=== PATIENT | male | born 1980 | race Caucasian/White ===

== ENCOUNTER 2022-05-29 00:10 | Emergency (ER) | payer BC ==
[~2022-05-29] VITALS: Ht 200.7 cm; Wt 81.0 kg
[2022-05-29 00:32] LABS: BASO% 0.9 % (0-3); EOS% 2.7 % (0-8); HEMATOCRIT 46.3 % (39.0-50.0); IMMATURE GRANULOCYTES 1.7 % (0.0-5.0); LYMPH% 49.4 % (15-41); MEAN CELL VOLUME 102.7 fL CALC (80.0-100.0); MEAN CORPUSCULAR HGB 35.5 pG CALC (26.0-32.0); MEAN CORPUSCULAR HGB CONC 34.6 g/dL CAL (32.0-36.0); MONO% 6.4 % (2-13); NEUT# 3.15 thou/uL (1.82-7.42); NEUT% 38.9 % (42-76); RED BLOOD COUNT 4.51 mill/uL (4.70-6.10); RED CELL DISTRI WIDTH 14.5 % (11.5-15.5)
[2022-05-29 00:49] LABS: ETHYL ALCOHOL 195 mg/dl (0-30)
[2022-05-29 00:50] LABS: ALBUMIN 4.6 g/dL (3.2-5.0); ALKALINE PHOSPHATASE 147 u/l (38-126); ANION GAP 21 (6-22 (CALC)); BILIRUBIN, TOTAL 0.4 mg/dL (0.0-1.4); BUN 7 mg/dL (9-20); BUN/CREATININE RATIO 8 (12-20 (CALC)); CARBON DIOXIDE 22 mmol/l (22-30); CHLORIDE 103 mmol/l (95-108); CREATININE 0.9 mg/dL (0.7-1.3); GFR FOR AFR.AMER. > 60 ML/MIN (>=60 (CALC)); GFR OTHER RACES > 60 ML/MIN (>=60 (CALC)); POTASSIUM 3.7 mmol/l (3.5-5.1); SGOT/AST 180 u/l (17-59); SODIUM 143 mmol/l (137-146); TOTAL PROTEIN 7.3 g/dL (6.3-8.2)
[2022-05-29 02:52] LABS: URINE BILIRUBIN - DIPSTICK NEGATIVE (NEGATIVE); URINE BLOOD DIPSTICK TRACE-INTACT (NEGATIVE); URINE COLOR YELLOW; URINE GLUCOSE - DIPSTICK >=1000 mg/dL (NEGATIVE); URINE KETONE NEGATIVE (NEGATIVE); URINE LEUK ESTERASE NEGATIVE (NEGATIVE); URINE PROTEIN - DIPSTICK 30 mg/dL (NEG-TRACE); URINE UROBILINOGEN - DIPSTICK 0.2 E.U./dL (0.2)
[2022-05-29 02:58] LABS: URINE NITRITE - DIPSTICK NEGATIVE (Negative)
[2022-05-29 03:02] LABS: URINE BACTERIA FEW hpf; URINE EPITHELIAL CELLS FEW EPI/hpf (0-FEW); URINE WBC 0-2 WBC/hpf (0-5)
[2022-05-29 08:00] VITALS: BP 152/107
--- NOTE | 2022-05-30 08:31 | NUR ---
PRELIMINARY BLOOD CULTURE SHOWS GRAM (+) COCCI IN [address] RESULTS RE[address] ATKINSON. NO NEW ORDERS. POSSIBLE CONTAMINATION. WILL FOLLOW UP WHEN FINAL RESULTS AVAILABLE.
== END 2022-05-29 08:00 | disposition home or self-care (01) | DRG 208 ==
LOC: ED 00:10
PROVIDERS: Emergency Medicine
PROC: 5A1935Z Respiratory Ventilation, Less than 24 Consecutive Hours (ICD-10-PCS; principal; 2022-05-29)
DX: J96.00 Acute respiratory failure, unspecified whether with hypoxia or hypercapnia (principal); E87.20 Acidosis, unspecified; F10.10 Alcohol abuse, uncomplicated; Y90.6 Blood alcohol level of 120-199 mg/100 ml; R47.81 Slurred speech; F19.10 Other psychoactive substance abuse, uncomplicated; R00.0 Tachycardia, unspecified

== ENCOUNTER 2022-06-23 02:14 | Inpatient (IN) | payer MEDICAID ==
[2022-06-23] VITALS (42 sets, daily range): BP systolic 114–177; BP diastolic 77–138
[~2022-06-23] VITALS: Ht 200.7 cm; Wt 79.0 kg
[2022-06-23 02:38] LABS: EOS% 2.3 % (0-8); HEMATOCRIT 43.9 % (39.0-50.0); HEMOGLOBIN 15.8 g/dl (14.0-18.0); IMMATURE GRANULOCYTES 0.3 % (0.0-5.0); MEAN CELL VOLUME 102.3 fL CALC (80.0-100.0); MEAN CORPUSCULAR HGB 36.8 pG CALC (26.0-32.0); MONO% 6.8 % (2-13); NEUT# 3.63 thou/uL (1.82-7.42); NEUT% 52.6 % (42-76); RED BLOOD COUNT 4.29 mill/uL (4.70-6.10); RED CELL DISTRI WIDTH 14.5 % (11.5-15.5)
[2022-06-23 02:49] LABS: ALBUMIN 4.7 g/dL (3.2-5.0); ALKALINE PHOSPHATASE 217 u/l (38-126); BILIRUBIN, TOTAL 0.4 mg/dL (0.0-1.4); BUN 18 mg/dL (9-20); BUN/CREATININE RATIO 23 (12-20 (CALC)); CHLORIDE 111 mmol/l (95-108); CREATININE 0.8 mg/dL (0.7-1.3); ETHYL ALCOHOL 255 mg/dl (0-30); GFR FOR AFR.AMER. > 60 ML/MIN (>=60 (CALC)); GFR OTHER RACES > 60 ML/MIN (>=60 (CALC)); SGOT/AST 251 u/l (17-59); SODIUM 147 mmol/l (137-146); TOTAL PROTEIN 7.7 g/dL (6.3-8.2)
[2022-06-23 02:51] LABS: ANION GAP 13 (6-22 (CALC)); CARBON DIOXIDE 28 mmol/l (22-30); POTASSIUM 4.6 mmol/l (3.5-5.1)
[2022-06-23 04:53] LABS: URINE BILIRUBIN - DIPSTICK NEGATIVE (NEGATIVE); URINE BLOOD DIPSTICK SMALL (NEGATIVE); URINE COLOR YELLOW; URINE GLUCOSE - DIPSTICK NEGATIVE (NEGATIVE); URINE KETONE TRACE mg/dL (NEGATIVE); URINE LEUK ESTERASE NEGATIVE (NEGATIVE); URINE PH 5.5 (4.5-8.0); URINE PROTEIN - DIPSTICK TRACE mg/dL (NEG-TRACE); URINE SPECIFIC GRAVITY >=1.030; URINE UROBILINOGEN - DIPSTICK 0.2 E.U./dL (0.2)
[2022-06-23 04:56] LABS: URINE NITRITE - DIPSTICK NEGATIVE (Negative)
[2022-06-23 05:02] LABS: URINE TRANSITIONAL EPI. CELLS FEW hpf; URINE WBC 0-2 WBC/hpf (0-5)
[2022-06-23] MEDS ORDERED: XANAX0.25 MG PO (17:19)
[2022-06-24 00:43] VITALS: BP 157/92
[2022-06-24 04:23] VITALS: BP 167/102
[2022-06-24 06:21] LABS: MEAN CELL VOLUME 104.7 fL CALC (80.0-100.0); MEAN CORPUSCULAR HGB 35.9 pG CALC (26.0-32.0); MEAN CORPUSCULAR HGB CONC 34.3 g/dL CAL (32.0-36.0); RED BLOOD COUNT 3.2 mill/uL (4.70-6.10); RED CELL DISTRI WIDTH 14.9 % (11.5-15.5)
[2022-06-24 06:28] LABS: ALKALINE PHOSPHATASE 147 u/l (38-126); BUN 19 mg/dL (9-20); BUN/CREATININE RATIO 31 (12-20 (CALC)); CARBON DIOXIDE 26 mmol/l (22-30); CHLORIDE 112 mmol/l (95-108); CREATININE 0.6 mg/dL (0.7-1.3); GFR FOR AFR.AMER. > 60 ML/MIN (>=60 (CALC)); GFR OTHER RACES > 60 ML/MIN (>=60 (CALC)); MAGNESIUM 1.6 mg/dL (1.6-2.3); SGOT/AST 63 u/l (17-59); SODIUM 141 mmol/l (137-146)
[2022-06-24 06:30] LABS: ALBUMIN 3.5 g/dL (3.2-5.0); ANION GAP 6 (6-22 (CALC)); BILIRUBIN, TOTAL 1.1 mg/dL (0.0-1.4); POTASSIUM 3.4 mmol/l (3.5-5.1); TOTAL PROTEIN 5.9 g/dL (6.3-8.2)
[2022-06-24 06:31] LABS: HEMATOCRIT 33.5 % (39.0-50.0); HEMOGLOBIN 11.5 g/dl (14.0-18.0)
[2022-06-24 07:08] LABS: INTERNATIONAL NORMALIZED RATIO 1.1 RATIO (0.7-1.3); PROTHROMBIN TIME 10.6 SECONDS (9.0-12.5)
[2022-06-24 07:49] VITALS: BP 164/93
[2022-06-24 11:44] VITALS: BP 168/106
[2022-06-24 15:55] VITALS: BP 165/103
== END 2022-06-24 22:30 | disposition short-term general hospital (02) | DRG 66 ==
LOC: ED 02:14 → ED-I 11:35 → ED 11:48 → MS2 11:49
PROVIDERS: Emergency Medicine; ADMIT Internal Medicine; ATTEND Internal Medicine
PROC: 0HQ1XZZ Repair Face Skin, External Approach (ICD-10-PCS; principal; 2022-06-24)
PROC: 0T9B70Z Drainage of Bladder with Drainage Device, Via Natural or Artificial Opening (ICD-10-PCS; 2022-06-24)
DX: I63.512 Cerebral infarction due to unspecified occlusion or stenosis of left middle cerebral artery (principal); R47.01 Aphasia; R41.0 Disorientation, unspecified; R29.707 NIHSS score 7; S01.112A Laceration without foreign body of left eyelid and periocular area, initial encounter; S00.81XA Abrasion of other part of head, initial encounter; F10.129 Alcohol abuse with intoxication, unspecified; R74.8 Abnormal levels of other serum enzymes; I10 Essential (primary) hypertension; F41.9 Anxiety disorder, unspecified; F32.A Depression, unspecified; F43.10 Post-traumatic stress disorder, unspecified; F17.210 Nicotine dependence, cigarettes, uncomplicated; Y90.8 Blood alcohol level of 240 mg/100 ml or more; Y04.2XXA Assault by strike against or bumped into by another person, initial encounter; Y92.009 Unspecified place in unspecified non-institutional (private) residence as the place of occurrence of the external cause
CPT/HCPCS: J2060; Q9967

== ENCOUNTER 2022-09-20 13:35 | Emergency (ER) | payer MEDICAID ==
[~2022-09-20] VITALS: Ht 200.7 cm; Wt 90.0 kg
[2022-09-20] VITALS (8 sets, daily range): BP systolic 98–134; BP diastolic 72–104
[~2022-09-20 13:35] MED LIST: XANAX0.25 MG PO
[2022-09-20 14:14] LABS: BASO% 0.5 % (0-3); EOS% 0.4 % (0-8); HEMATOCRIT 47.2 % (39.0-50.0); IMMATURE GRANULOCYTES 0.7 % (0.0-5.0); LYMPH% 9.3 % (15-41); MEAN CELL VOLUME 96.3 fL CALC (80.0-100.0); MEAN CORPUSCULAR HGB 30.6 pG CALC (26.0-32.0); MEAN CORPUSCULAR HGB CONC 31.8 g/dL CAL (32.0-36.0); MONO% 3.2 % (2-13); NEUT# 6.39 thou/uL (1.82-7.42); NEUT% 85.9 % (42-76); RED BLOOD COUNT 4.9 mill/uL (4.70-6.10); RED CELL DISTRI WIDTH 13.5 % (11.5-15.5)
[2022-09-20 14:14] LABS: URINE BILIRUBIN - DIPSTICK NEGATIVE (NEGATIVE); URINE BLOOD DIPSTICK LARGE (NEGATIVE); URINE COLOR YELLOW; URINE GLUCOSE - DIPSTICK 250 mg/dL (NEGATIVE); URINE KETONE NEGATIVE (NEGATIVE); URINE LEUK ESTERASE NEGATIVE (NEGATIVE); URINE PROTEIN - DIPSTICK 30 mg/dL (NEG-TRACE); URINE SPECIFIC GRAVITY >=1.030; URINE UROBILINOGEN - DIPSTICK 0.2 E.U./dL (0.2)
[2022-09-20 14:15] LABS: URINE NITRITE - DIPSTICK NEGATIVE (Negative)
[2022-09-20 14:22] LABS: URINE HYALINE CAST FEW lpf (NONE-RARE); URINE RBC 25-50 RBC/hpf (0-5); URINE WBC 0-2 WBC/hpf (0-5)
[2022-09-20 14:29] LABS: ALKALINE PHOSPHATASE 96 u/l (38-126); BUN 25 mg/dL (9-20); BUN/CREATININE RATIO 23 (12-20 (CALC)); CARBON DIOXIDE 21 mmol/l (22-30); CHLORIDE 107 mmol/l (95-108); CREATININE 1.1 mg/dL (0.7-1.3); ETHYL ALCOHOL 17 mg/dl (0-30); GFR FOR AFR.AMER. > 60 ML/MIN (>=60 (CALC)); GFR OTHER RACES > 60 ML/MIN (>=60 (CALC)); SGOT/AST 50 u/l (17-59); SODIUM 140 mmol/l (137-146)
[2022-09-20 14:40] LABS: ALBUMIN 4.5 g/dL (3.2-5.0); ANION GAP 16 (6-22 (CALC)); BILIRUBIN, TOTAL 0.3 mg/dL (0.2-1.3); POTASSIUM 4.1 mmol/l (3.5-5.1); TOTAL PROTEIN 7.2 g/dL (6.3-8.2)
== END 2022-09-20 16:15 | disposition left against medical advice (07) ==
LOC: ED 13:35 → ED-I 14:40 → ED 15:25 → ICU 15:26
PROVIDERS: Family Medicine
DX: T42.4X1A Poisoning by benzodiazepines, accidental (unintentional), initial encounter (principal); I69.320 Aphasia following cerebral infarction; F80.2 Mixed receptive-expressive language disorder; F17.200 Nicotine dependence, unspecified, uncomplicated; Z53.29 Procedure and treatment not carried out because of patient's decision for other reasons

== ENCOUNTER 2023-02-09 17:26 | Emergency (ER) | payer MEDICAID ==
[~2023-02-09] VITALS: Ht 200.7 cm; Wt 76.0 kg
[2023-02-10 04:22] VITALS: BP 134/88
== END 2023-02-09 19:05 | disposition left against medical advice (07) | DRG 951 ==
LOC: ED 17:26 → LWOBS 19:05
DX: Z53.21 Procedure and treatment not carried out due to patient leaving prior to being seen by health care provider (principal)